=== PATIENT | female | born 1985 | race Caucasian/White ===

== ENCOUNTER → 2017-02-28 | Outpatient (CLI) | payer OTHER | LOC: FIMAGING 08:30 | PROVIDERS: ATTEND Obstetrics & Gynecology | DX: O35.3XX1 Maternal care for (suspected) damage to fetus from viral disease in mother, fetus 1 (principal); Z20.828 Contact with and (suspected) exposure to other viral communicable diseases; Z3A.19 19 weeks gestation of pregnancy ==

== ENCOUNTER 2017-10-02 15:09 | Emergency (ER) | payer SELFPAY ==
[2017-10-02 15:13] VITALS: RESP 18
--- NOTE | 2017-10-02 16:15 | EDPHY ---
H & P Stated Complaint: middle back pain s/p fall CLIENT SERVICE PROFESSIONAL Time Seen by Provider: 10/02/17 16:07 HPI/ROS: CHIEF COMPLAINT: Low back pain post mechanical fall HISTORY OF PRESENT ILLNESS: 32-year-old female arrives via private vehicle complaining of acute low back pain after she was walking down the stairs, slipped and fell backward impacting her low back and thoracic spine against the stairs. She denies thoracic spine pain. He is complaining of low back pain without peripheral paresthesia, weakness, numbness. No incontinence or retention. No head injury. No midline C-spine pain or injury. No chest pain or injury. No abdominal pain injury. No dyspnea. REVIEW OF SYSTEMS: A ten point review of systems was performed and is negative with the exception of the items mentioned in the HPI PAST MEDICAL/SURGICAL HISTORY: no anticoagulant use, no relevant medical/ surgical history SOCIAL HISTORY: denies alcohol use at time of incident PHYSICAL EXAM 1) GENERAL: Well-developed, well-nourished, alert and oriented. Appears uncomfortable when she is asked to move. Answering questions appropriately. 2) HEAD: Normocephalic, atraumatic 3) HEENT: Pupils equal, round, reactive to light bilaterally. Negative Horners. Nasopharynx, oropharynx, clear. No deformity or angulation of nose. No septal hematoma. No rhinorrhea. No oral trauma. Ears bilaterally with normal tympanic membranes. No hemotympanum. No fluid or blood in the external auditory canal. No raccoon eyes. No Frias sign. . 4) NECK: No cervical collar is on. Posterior cervical spine is nontender, no stepoff, no effusion. Full range of motion which does not elicit any midline cervical spine pain, no posterior midline tenderness, no step-off. 5) LUNGS: Clear to auscultation bilaterally, no wheezes, no rhonchi, no retractions. No obvious signs of trauma. No chest wall pain. No flaring, no grunting. Moving symmetrically. No crepitus. 6) HEART: Regular rate and rhythm, 7) ABDOMEN: No guarding, no rebound, no focal tenderness, no peritoneal signs, no signs of trauma, no ecchymosis 8) MUSCULOSKELETAL: Moving all extremities, no focal areas of tenderness, no obvious trauma. 9) BACK: Transverse abrasion thoracic spine approximately T4 level with no midline thoracic spine pain. No step-off no crepitus. Abrasion to the approximately L2 level with associated midline pain. No crepitus. No step- off. Lower extremities have patella and Achilles reflexes intact to bilateral strength 5/5. 10) SKIN: [ No laceration. DIFFERENTIAL DIAGNOSIS: In no particular order including but not limited to fracture, sprain, strain, dislocation, discogenic etiology - Personal History LMP (Females 10-55): Unknown Current Tetanus/Diphtheria Vaccine: Yes Current Tetanus Diphtheria and Acellular Pertussis (TDAP): Yes - Medical/Surgical History Hx Asthma: No Hx Chronic Respiratory Disease: No Hx Diabetes: No Hx Cardiac Disease: No Hx Renal Disease: No Hx Cirrhosis: No Hx Alcoholism: No Hx HIV/AIDS: No Hx Splenectomy or Spleen Trauma: No Other PMH: PMH: denies - Social History Smoking Status: Never smoked Constitutional: Initial Vital Signs Temperature (C) 37.0 C 10/02/17 15:10 Heart Rate 108 H 10/02/17 15:10 Respiratory Rate 18 10/02/17 15:10 Blood Pressure 138/103 H 10/02/17 15:10 O2 Sat (%) 97 10/02/17 15:10 O2 Delivery Mode Room Air Allergies/Adverse Reactions: No Known Allergies Allergy (Unverified 10/02/17 15:13) Home Medications: Medication Instructions Recorded NK [No Known Home Meds] 10/02/17 Medical Decision Making - Diagnostics Imaging Results: Imaging Impressions Lumbar Spine X-Ray 10/02/17 16:12 Impression: Negative. No acute fracture. Images reviewed by myself ED Course/Re-evaluation: 4:14 p.m.: Will obtain lumbar spine x-ray as she has focal pain in the lumbar region. She is noted to have an abrasion to the thoracic spine with no midline pain, crepitus with palpation. Care of patient under supervision of secondary supervising physician Dr Bates with whom I discussed care and reviewed the x-rays 5:37 p.m.: Re-evaluation, discussed her imaging showing no definitive acute osseous abnormality. Discussed limitations of x-ray, informed that non osseous abnormality not ruled out. Evaluate her bilateral elbows which are tender to palpation over the olecranon. I recommended x-ray which he declines. Informed the risks of declining this. Offered analgesia which he declines. She does not a primary care provider provided her with outpatient primary adult medicine follow up with Dr. Venkata Ibrahim. Usual and customary low back pain precautions instructions provided. Departure - Departure Disposition: Home, Routine, Self-Care Clinical Impression: Acute low back pain Qualifiers: Back pain laterality: midline Sciatica presence: without sciatica Qualified Code(s): M54.5 - Low back pain Condition: Good Instructions: Acute Low Back Pain (ED) Additional Instructions: Seek medical attention if you develop new or worsening pain, if you develop bladder or bowel dysfunction, numbness around your perineum, foot drop, or any other symptoms that concern you. Recommend application of cold packs. Referrals: Lexa Ibrahim MD [Medical Doctor] - 2-3 days, call for appt.
[2017-10-02 17:53] VITALS: BP 109/79; PULSE 78; TEMP 98.1; O2SAT 96
== END 2017-10-02 17:53 | disposition home or self-care (01) ==
DX: S39.92XA Unspecified injury of lower back, initial encounter (principal); W01.0XXA Fall on same level from slipping, tripping and stumbling without subsequent striking against object, initial encounter; Y93.01 Activity, walking, marching and hiking